=== PATIENT | male | born 1965 | race Caucasian/White ===

== ENCOUNTER 2020-06-15 09:16 | Day surgery (SDC) | payer OTHER ==
[~2020-06-15 09:16] MED LIST: LACTATED RINGERS 1,000 ML IV SCH
--- NOTE | 2020-06-15 10:04 | P.GSHP ---
History of Present Illness H&P Date: 06/15/20 CHIEF COMPLAINT: Colon screen HISTORY OF PRESENT ILLNESS: The patient is a 55-year-old male who presents for colon screen. Lower endoscopy was offered for further evaluation and management. PAST MEDICAL HISTORY: Please see list. PAST SURGICAL HISTORY: Please see list. MEDICATIONS: Please see list. ALLERGIES: Please see list. SOCIAL HISTORY: No illicit drug use FAMILY HISTORY: No reports of Crohn disease or ulcerative colitis. REVIEW OF ORGAN SYSTEMS: CONSTITUTIONAL: No reports of fevers or chills. PHYSICAL EXAM: VITAL SIGNS: Stable GENERAL: Well-developed pleasant in no acute distress. HEENT: No scleral icterus. Extraocular movements grossly intact. Moist buccal mucosa. NECK: Supple without lymphadenopathy. CHEST: Unlabored respirations. Equal bilateral excursions. CARDIOVASCULAR: Regular rate and rhythm. Distal 2+ pulses. ABDOMEN: Soft, nontender, nondistended. MUSCULOSKELETAL: No clubbing, cyanosis, or edema. ASSESSMENT: 1. Colon screen. PLAN: 1. Recommend proceeding with a lower endoscopy Past Medical History Past Medical History: No Reported History Additional Past Medical History / Comment(s): FELL FROM A TREE IN MARCH 2020 AND FX BOTH WRISTS AND NOSE, NO SURGERY WAS REQUIRED. History of Any Multi-Drug Resistant Organisms: None Reported Additional Past Surgical History / Comment(s): VASCETOMY. Past Anesthesia/Blood Transfusion Reactions: No Reported Reaction Additional Past Anesthesia/Blood Transfusion Reaction / Comment(s): HAS NEVER HAD ANESTHESIA, EXCEPT ORAL SURGERY. Past Psychological History: No Psychological Hx Reported Additional Psychological History / Comment(s): CLAUSTROBIA Smoking Status: Current every day smoker Past Alcohol Use History: Rare Additional Past Alcohol Use History / Comment(s): SMOKES A 1 PPD SINCE 1982. Past Drug Use History: None Reported Medications and Allergies Home Medications Medication Instructions Recorded Confirmed Type Calcium Carbonate [Calcium] 1 tab PO DAILY 06/10/20 06/10/20 History Ergocalciferol [Vitamin D2 50,000 unit PO FR 06/10/20 06/10/20 History (DRISDOL)] Allergies Allergy/AdvReac Type Severity Reaction Status Date / Time Sulfa (Sulfonamide Allergy Rash/Hives Verified 06/15/20 09:52 Antibiotics)
[2020-06-15] MEDS ORDERED: LIDOCAINE 1% (10MG/ML) FOR IV START INTRADERMA ONE (10:10)
[2020-06-15 10:11] VITALS: TEMP 98.2
[2020-06-15] MEDS ORDERED: PROPOFOL 10 MG/ML 20 ML VIAL IV ONE (10:20)
--- NOTE | 2020-06-15 10:46 | P.PCN ---
Date of Procedure: 06/15/20 Description of Procedure: PREOPERATIVE DIAGNOSIS: Colonoscopy screening POSTOPERATIVE DIAGNOSIS: Sigmoid colon polyp Sigmoid diverticulosis Internal hemorrhoids, grade 2 OPERATION: Colonoscopy to the ileocecal valve and appendiceal orifice, cecum Colonoscopy with cold forceps biopsies SURGEON: Radha Nath MD. ANESTHESIA: MAC. INDICATIONS: The patient is an 55-year-old male who presents for his first colonoscopic exam. Benefits and risks were described and informed consent was obtained. DESCRIPTION OF PROCEDURE: The patient had undergone Suprep. He had been brought into the operating room and laid in the left lateral decubitus position. After adequate intravenous sedation, the rectum was examined with 2% lidocaine jelly. The prostate was unremarkable. External hemorrhoids were encountered. The rectal tone was within normal limits. No lesions were palpated in the rectal vault. An Olympus colonoscope was advanced until the cecum, ileocecal valve and appendiceal orifice were clearly viewed. The prep was fair. Sigmoid diverticulosis was encountered. Colonic polyp was removed with cold forceps. No evidence of focal colitis was found. Retroflexion of the scope demonstrated grade 2 internal hemorrhoids without active bleeding or inflammation. The colon was desufflated. The patient had tolerated the procedure well. Withdrawal time was over 6 minutes. FINDINGS: Aronchick preparation quality scale 2 (1-5) Internal hemorrhoids, grade 2 External hemorrhoids, grade 2 No arteriovenous malformations. Sigmoid diverticulosis Removal of 1 polyp: - Cold forceps biopsy at 25 cm from the anal verge, 4 mm polyp, sigmoid colon No focal colitis. RECOMMENDATIONS: Repeat colonoscopy in 5 years, 2024 Plan - Discharge Summary Discharge Rx Participant: No New Discharge Prescriptions: Continue Ergocalciferol [Vitamin D2 (DRISDOL)] 50,000 unit PO FR Calcium Carbonate [Calcium] 1 tab PO DAILY Discharge Medication List Calcium Carbonate [Calcium] 1 tab PO DAILY 06/10/20 [History] Ergocalciferol [Vitamin D2 (DRISDOL)] 50,000 unit PO FR 06/10/20 [History] Follow up Appointment(s)/Referral(s): Radha Nath MD [STAFF PHYSICIAN] - As Needed Patient Instructions/Handouts: Colonoscopy (DC), *Surgery [facility] - (Anesthesia) Endoscopy Discharge Instructions, Colorectal Polyps (IP), Diverticulosis Diet (GEN), Diverticulosis (DC) Activity/Diet/Wound Care/Special Instructions: Repeat colonoscopy 5 years, 2024 Discharge Disposition: HOME SELF-CARE
[2020-06-15 11:02] VITALS: RESP 16
[2020-06-15 11:18] VITALS: BP 130/83; PULSE 73
== END 2020-06-15 11:41 | disposition home or self-care (01) ==
LOC: ORWHC2ENDO 09:16
PROVIDERS: ATTEND Surgery Plastic and Reconstructive Surgery
DX: Z12.11 Encounter for screening for malignant neoplasm of colon (principal); K57.30 Diverticulosis of large intestine without perforation or abscess without bleeding; K63.5 Polyp of colon; K64.1 Second degree hemorrhoids; Z87.81 Personal history of (healed) traumatic fracture; F17.210 Nicotine dependence, cigarettes, uncomplicated; Z98.52 Vasectomy status; Z97.2 Presence of dental prosthetic device (complete) (partial); Z88.2 Allergy status to sulfonamides
CPT/HCPCS: 88305; 45380; J2704

== ENCOUNTER 2022-01-13 10:59 | Emergency (ER) | payer OTHER ==
[2022-01-13 11:20] VITALS: RESP 18
[2022-01-13] MEDS ORDERED: HYDROcodone/APAP 5-325MG 1 EACH TAB PO STA (12:57)
--- NOTE | 2022-01-13 13:01 | ED ---
Extremity Problem HPI - General Chief complaint: Extremity Problem,Nontraumatic Stated complaint: right leg pain and numbness Time Seen by Provider: 01/13/22 11:27 Source: patient, family, RN notes reviewed Mode of arrival: ambulatory Limitations: no limitations - History of Present Illness Initial comments: This is a 56-year-old male who presents to the emergency department with right leg pain. States that 2 weeks ago he had leg pain that started in the right thigh. Since then, the pain has traveled distally every couple of days, all the way down the leg into the calf and down into the foot. Yesterday, the pain began traveling proximally back up into the calf, where it remained until this morning. He is now having pain in the right thigh again. The pain has gotten progressively worse. Denies any fevers, shortness of breath, chest pain, or history of blood clots. He was at urgent care 2 days ago, and they were unable to fully evaluate him, and states that no workup was done. Yesterday he saw his primary care provider, who suggested that he may have some sort of vascular problem. Lab work was done at that time and found to be unremarkable. He states that the pain is worse with ambulating, and better with lying down. MD Complaint: extremity pain Onset/Timin -: week(s) Location: right, lower extremity History of Same: No Radiation: proximal, distal Worsens with: weight bearing - Related Data Home Medications Medication Instructions Recorded Confirmed Aspirin EC [Ecotrin] 325 mg PO DAILY PRN 01/13/22 01/13/22 Previous Rx's Medication Instructions Recorded Cyclobenzaprine [Flexeril] 5 mg PO TID PRN #30 tablet 01/13/22 Diclofenac Sodium [Voltaren] 50 mg PO BID PRN #20 tab 01/13/22 Allergies Allergy/AdvReac Type Severity Reaction Status Date / Time Sulfa (Sulfonamide Allergy Rash/Hives Verified 01/13/22 14:54 Antibiotics) Review of Systems ROS Statement: Those systems with pertinent positive or pertinent negative responses have been documented in the HPI. ROS Other: All systems not noted in ROS Statement are negative. Constitutional: Denies: fever, chills ENT: Denies: ear pain, throat pain Respiratory: Denies: cough, dyspnea Cardiovascular: Denies: chest pain, palpitations Endocrine: Denies: fatigue Gastrointestinal: Denies: abdominal pain, nausea, vomiting, diarrhea Musculoskeletal: Denies: back pain Skin: Denies: rash Past Medical History Past Medical History: No Reported History Additional Past Medical History / Comment(s): FELL FROM A TREE IN MARCH 2020 AND FX BOTH WRISTS AND NOSE, NO SURGERY WAS REQUIRED. History of Any Multi-Drug Resistant Organisms: None Reported Additional Past Surgical History / Comment(s): VASCETOMY. Past Anesthesia/Blood Transfusion Reactions: No Reported Reaction Additional Past Anesthesia/Blood Transfusion Reaction / Comment(s): HAS NEVER HAD ANESTHESIA, EXCEPT ORAL SURGERY. Past Psychological History: No Psychological Hx Reported Smoking Status: Current every day smoker Past Alcohol Use History: Rare Past Drug Use History: None Reported General Exam Limitations: no limitations General appearance: alert, in no apparent distress Head exam: Present: atraumatic, normocephalic, normal inspection Respiratory exam: Present: normal lung sounds bilaterally. Absent: respiratory distress, wheezes, rales, rhonchi, stridor Cardiovascular Exam: Present: regular rate, normal rhythm, normal heart sounds. Absent: systolic murmur, diastolic murmur, rubs, gallop, clicks Extremities exam: Present: other (Tenderness in the right thigh. No swelling, increased heat, erythema, or other skin changes.) Right Lower Leg exam: Absent: Homans' sign Neurovascular tendon exam: Present: no vascular compromise. Absent: pulse deficit, abnormal cap refill, motor deficit, extremity cold to touch, pallor, significant pain with passive ROM of distal joint Neurological exam: Present: alert, oriented X3, CN II-XII intact Psychiatric exam: Present: normal affect, normal mood Skin exam: Present: warm, dry, intact, normal color. Absent: rash Course Vital Signs 01/13/22 01/13/22 11:15 15:22 Temperature 97.9 F 98.9 F Pulse Rate 82 88 Respiratory 18 18 Rate Blood Pressure 163/81 158/78 O2 Sat by Pulse 99 98 Oximetry Medical Decision Making - Medical Decision Making This is a 56-year-old male who presents to the emergency department for right leg pain. Ultrasound of the right leg obtained and was negative for a DVT. He had lab work done at his primary care provider's office yesterday, this is available for evaluation in our system, and was found to be nonactionable. Patient has no interest in any additional blood work, such as a d-dimer, as he does not like needles. While having his US done, he spoke with the service technician regarding Dr. Valero with vascular surgery. He was able to make an appointment for 01/15 to see him. States that the plan is supposed to be to have an angiogram for further evaluation. Patient advised that the angiogram will give a better evaluation of the arteries, whereas we were only looking for a DVT at this point. He does not have symptoms of vascular compromise such as pallor, weakness, paresthesia, a cold extremity, or reduced or absent pulses, that would indicate the need for a CT angiogram in the emergency department at this time. Patient advised to treat symptoms with antiinflammatories and a muscle relaxer at this time. Prescription for diclofenac sent to the patient's pharmacy. He is instructed to avoid taking this with Motrin. He can alternate this with Tylenol. Patient also given a prescription for Flexeril, he is advised to start out taking this only at night until it until he knows how it affects him, as it has the potential to cause drowsiness. Return precautions reviewed in depth, the patient is instructed to return to the emergency department if symptoms worsen including but not limited to the development of pallor in the extremity, fevers/chills, weakness, paresthesia, worsening pain, or a cold extremity. Patient verbalized understanding. This case was discussed in detail with the attending ED physician. Presentation, findings, and treatment plan discussed in detail as well. - Radiology Data Radiology results: report reviewed, image reviewed Disposition Clinical Impression: Right leg pain Disposition: HOME SELF-CARE Instructions (If sedation given, give patient instructions): Lumbar Radiculo levi (ED), Leg Pain (ED) Additional Instructions: Return to the emergency department if symptoms worsen, your extremity turns pale, cold, numb, or you are unable to ambulate. Follow up with vascular on 01/15 as scheduled. Take either Diclofenac or Motrin, but do not take them together. Supplement either one with Tylenol. Take Flexeril at night until you know how it effects you, as it can cause drowsiness. Follow up with your PCP in 2-3 days. Prescriptions: Cyclobenzaprine [Flexeril] 5 mg PO TID PRN #30 tablet PRN Reason: Pain Diclofenac Sodium [Voltaren] 50 mg PO BID PRN #20 tab PRN Reason: Pain Is patient prescribed a controlled substance at d/c from ED?: No Referrals: Prashant Garcia MD [Primary Care Provider] - 1-2 days
--- NOTE | 2022-01-13 14:27 | US ---
EXAMINATION TYPE: US venous doppler duplex LE RT DATE OF EXAM: 01/13/2022 2:18 PM COMPARISON: NONE CLINICAL HISTORY: Calf pain. Pain SIDE PERFORMED: Right TECHNIQUE: The lower extremity deep venous system is examined utilizing real time linear array sonog christiana with graded compression, doppler sonography and color-flow sonography. VESSELS IMAGED: Common Femoral Vein Deep Femoral Vein Greater Saphenous Vein * Femoral Vein Popliteal Vein Small Saphenous Vein * Proximal Calf Veins (* superficial vessels) Right Leg: Negative for DVT Grayscale, color doppler, spectral doppler imaging performed of the deep veins of the right lower ext remity. There is normal flow, compressibility, vascular waveforms. IMPRESSION: No ultrasound evidence for acute DVT in the right lower extremity.
[2022-01-13 15:23] VITALS: BP 158/78; PULSE 88; TEMP 98.9
== END 2022-01-13 15:22 | disposition home or self-care (01) ==
LOC: EC 10:59
DX: M79.604 Pain in right leg (principal); R20.0 Anesthesia of skin; F17.200 Nicotine dependence, unspecified, uncomplicated; Z88.2 Allergy status to sulfonamides
CPT/HCPCS: 99284

== ENCOUNTER → 2022-02-05 | Outpatient (CLI) | payer OTHER ==
--- NOTE | 2022-02-05 12:25 | XR ---
EXAM TYPE: LUMBAR SPINE X RAY SERIES COMPARISON: NONE HISTORY: Pain TECHNIQUE: 4 views are submitted. FINDINGS: Alignment is anatomic. The pedicles are intact. The transverse processes are intact. There is hype rtrophic and degenerative change lower lumbar spine facet arthropathy. Vascular calcifications noted. IMPRESSION: 1. Mild hypertrophic and degenerative change.
--- NOTE | 2022-02-05 12:26 | XR ---
EXAMINATION TYPE: XR Hip Complete RT DATE OF EXAM: 02/05/2022 COMPARISON: NONE HISTORY: Pain TECHNIQUE: 2 views submitted FINDINGS: There is no evidence of erosive change or acute fracture. Moderate narrowing of the hip joint. Vascul ar calcification in the pelvis. IMPRESSION: 1. Moderate right hip arthropathy. Consider follow-up MRI.
== END | disposition home or self-care (01) ==
LOC: RADXRMAIN 12:03
PROVIDERS: ATTEND Nurse Practitioner Family
DX: M47.26 Other spondylosis with radiculopathy, lumbar region (principal); M12.851 Other specific arthropathies, not elsewhere classified, right hip
CPT/HCPCS: 72100; 73502

== ENCOUNTER → 2022-02-23 | Outpatient (CLI) | payer OTHER ==
--- NOTE | 2022-02-24 04:02 | MR ---
EXAMINATION TYPE: MR hip RT wo con DATE OF EXAM: 02/23/2022 COMPARISON: None HISTORY: PAIN IN RT HIP Multiplanar multiecho imaging of the right hip without contrast. The pelvic ring is intact. Proximal right femur and hip joint appear intact. No evidence of any signi ficant hip joint effusion. Bladder distends smoothly. No evidence of a pelvic mass. No free fluid in the pelvis. Acetabulum appears intact. Sacroiliac joints are intact. No evidence of avascular necrosi s. No fracture seen. IMPRESSION: Negative MR scan of the right hip.
== END | disposition home or self-care (01) ==
LOC: RADMRIMAIN 10:27
PROVIDERS: ATTEND Nurse Practitioner Family
DX: M25.551 Pain in right hip (principal)